=== PATIENT | male | born 1975 | race Caucasian/White ===

== ENCOUNTER 2020-08-23 22:28 | Emergency (ER) | payer BC ==
[2020-08-23] MEDS ORDERED: TORAdol 30 mg Injection IV ONE (23:07)
[2020-08-23] MEDS ORDERED: TORAdol 30 mg Injection ONE (23:08)
--- NOTE | 2020-08-23 23:14 | ERPHSYRPT ---
- History of Present Illness Historian: patient Patient Subjective Stated Complaint: pt states he has pain in his lt side that started after dinner tonight. pain is in lt lower back and wraps around to lt pelvic area Triage Nursing Assessment: pt alert and oriented, answers questions approp. pt ambulatory with slow stooped gait noted. respirations nonlabored with lungs cta. abd soft with bowel sounds x4. Physician History: 44 yo wm w LLQ/L flank pain x 4 hours. Pain 8/10, sharp, and nothing makes better or worse. He denies fever/dysuria/hematuria/N/V/D/melena/hemat ochezia/chest pain. Pt has had simialr pain in the past on the R side which was undiagnosed. Timing/Duration: other (4hrs) Quality: sharpness Abdominal Pain Onset Location: LLQ, flank Pain Radiation: no radiation Severity of Pain-Max: severe Severity of Pain-Current: severe Modifying Factors: Improves With: nothing Associated Symptoms: back, No chest pain, No diaphoresis, No diarrhea, No fever/chills, No fatigue, No headache, No heartburn, No loss of appetite, No nausea, No neck pain, No rash, No shortness of breath, No syncope, No testicular pain, No vomiting, No weakness Previous symptoms: same symptoms as today Allergies/Adverse Reactions: No Known Drug Allergies Allergy (Verified 08/23/20 22:44) Home Medications: No Reportable Medications [No Reported Medications] 08/23/20 [History] Hx Tetanus, Diphtheria Vaccination/Date Given: No Hx Influenza Vaccination/Date Given: No Hx Pneumococcal Vaccination/Date Given: No Immunizations Up to Date: No Travel Risk - International Travel Have you traveled outside of the country in past 3 weeks: No - Coronavirus Screening Are you exhibiting any of the following symptoms?: No Close contact with a COVID-19 positive Pt in past 14-21 Days: No - Vaccine Status Have you recieved a Covid-19 vaccination: No - Review of Systems Constitutional: No Symptoms Eyes: No Symptoms Ears, Nose, & Throat: No Symptoms Respiratory: No Symptoms Cardiac: No Symptoms Abdominal/Gastrointestinal: No Symptoms, Abdominal Pain Genitourinary Symptoms: No Symptoms, Flank Pain Musculoskeletal: No Symptoms Skin: No Symptoms Neurological: No Symptoms Psychological: No Symptoms Endocrine: No Symptoms Hematologic/Lymphatic: No Symptoms Immunological/Allergic: No Symptoms - Past Medical History Pertinent Past Medical History: No - Past Surgical History Past Surgical History: Yes Musculoskeletal: Orthopedic Surgery Other Surgical History: hardware in leg, pelvis, and shoulder - Social History Smoking Status: Current every day smoker How long have you smoked: 20+yrs Exposure to second hand smoke: No Drug Use: none Patient Lives Alone: No Significant Family History: no pertinent family hx - Nursing Vital Signs Nursing Vital Signs: Initial Vital Signs Respiratory Rate 18 08/23/20 22:35 Pain Scale Pain Intensity 3 - Physical Exam General Appearance: no apparent distress Eye Exam: PERRL/EOMI, eyes nml inspection Ears, Nose, Throat Exam: normal ENT inspection, TMs normal, pharynx normal, moist mucous membranes Neck Exam: normal inspection, non-tender, supple, No full range of motion, No meningismus, No mass, No Brudzinski, No Kernig's Respiratory Exam: normal breath sounds, lungs clear, airway intact, No chest tenderness, No respiratory distress Cardiovascular Exam: regular rate/rhythm, normal heart sounds, normal peripheral pulses, No murmur Gastrointestinal/Abdomen Exam: soft, normal bowel sounds, tenderness (Mild LLQ/L flank pain ttp wo guarding/rebound) Back Exam: CVA tenderness (Mild L) Extremity Exam: normal inspection, normal range of motion, pelvis stable Neurologic Exam: alert, oriented x 3, cooperative, 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, normal mood/affect, nml cerebellar function, nml station & gait, sensation nml, No motor deficits, No sensory deficit Skin Exam: normal color, warm, dry Lymphatic Exam: adenopathy - Course Nursing assessment & vital signs reviewed: Yes EKG Interpreted by Me: RATE (NSR/R67/Normal QT-QTc/Flat T-waves/No acute ST changes) - CT Exams Abdomen/Pelvis CT Interpretation: Tele-radiologist Report (Nothing acute) Ordered Tests: Active Orders 24 hr Category Date Time Status EKG-ER Only STAT Care 08/24/20 01:13 Completed ABDOMEN AND PELVIS W/0 CONTRAS [CT] Stat Exams 08/24/20 00:37 Taken AMYLASE Stat Lab 08/24/20 00:30 Completed CBC W DIFF Stat Lab 08/24/20 00:30 Completed CMP Stat Lab 08/24/20 00:30 Completed LIPASE Stat Lab 08/24/20 00:30 Completed TROPONIN Q3H Lab 08/24/20 00:15 Completed UA W/RFX UR CULTURE Stat Lab 08/23/20 23:06 Completed Medication Summary Discontinued Medications Generic Name Dose Route Start Last Admin Trade Name [place] PRN Reason Stop Dose Admin Fentanyl Citrate 100 mcg 08/24/20 00:04 08/24/20 00:09 Sublimaze 100 Mcg/2 Ml IV 08/24/20 00:05 100 mcg STAT ONE Administration Fentanyl Citrate Confirm 08/24/20 00:06 Sublimaze 100 Mcg/2 Ml Administered 08/24/20 00:07 Dose 100 mcg .ROUTE .STK-MED ONE Hydromorphone HCl 1 mg 08/24/20 01:38 08/24/20 01:40 Hydromorphone 1 Mg/Ml Injection IV 08/24/20 01:39 1 mg STAT ONE Administration Hydromorphone HCl Confirm 08/24/20 01:38 Hydromorphone 1 Mg/Ml Injection Administered 08/24/20 01:39 Dose 1 mg .ROUTE .STK-MED ONE Ketorolac Tromethamine 30 mg 08/23/20 23:07 08/23/20 23:09 Toradol 30 Mg Injection IV 08/23/20 23:08 30 mg STAT ONE Administration Ketorolac Tromethamine Confirm 08/23/20 23:08 Toradol 30 Mg Injection Administered 08/23/20 23:09 Dose 30 mg .ROUTE .STK-MED ONE Ondansetron HCl 4 mg 08/24/20 00:05 08/24/20 00:09 Zofran 4 Mg/2 Ml Vial IV 08/24/20 00:06 4 mg STAT ONE Administration Ondansetron HCl Confirm 08/24/20 00:06 Zofran 4 Mg/2 Ml Vial Administered 08/24/20 00:07 Dose 4 mg .ROUTE .STK-MED ONE Lab/Rad Data: Laboratory Result Diagrams 08/24/20 00:30 08/24/20 00:30 Laboratory Results 08/24/20 08/24/20 08/24/20 Range/Units 00:30 00:30 00:15 WBC 7.4 (4.0-10.5) K/mm3 RBC 5.15 (4.1-5.6) M/mm3 Hgb 15.5 (12.5-18.0) gm/dl Hct 47.2 (42-50) % MCV 91.7 (78-100) fl MCH 30.1 (26-32) pg MCHC 32.8 (32-36) g/dl RDW 13.4 (11.5-14.0) % Plt Count 291 (150-450) K/mm3 MPV 9.6 (7.5-11.0) fl Gran % 47.1 (36.0-66.0) % Eos # (Auto) 0.26 (0-0.5) Absolute Lymphs (auto) 2.55 (1.0-4.6) Absolute Monos (auto) 1.10 (0.0-1.3) Lymphocytes % 34.3 (24.0-44.0) % Monocytes % 14.8 H (0.0-12.0) % Eosinophils % 3.5 (0.00-5.0) % Basophils % 0.3 (0.0-0.4) % Absolute Granulocytes 3.51 (1.4-6.9) Basophils # 0.02 (0-0.4) Sodium 139 (137-145) mmol/L Potassium 4.2 (3.5-5.1) mmol/L Chloride 105 (98-107) mmol/L Carbon Dioxide 27 (22-30) mmol/L Anion Gap 10.7 (5-15) MEQ/L BUN 16 (9-20) mg/dL Creatinine 1.08 (0.66-1.25) mg/dL Estimated GFR > 60.0 ML/MIN Glucose 94 (74-106) mg/dL Calcium 9.3 (8.4-10.2) mg/dL Total Bilirubin 0.30 (0.2-1.3) mg/dL AST 25 (17-59) U/L ALT 27 (0-50) U/L Alkaline Phosphatase 62 (38-126) U/L Troponin I < 0.012 (0.000-0.034) ng/mL Serum Total Protein 6.8 (6.3-8.2) g/dL Albumin 3.8 (3.5-5.0) g/dL Amylase 71 (30-110) U/L Lipase 195 (23-300) U/L Urine Color (YELLOW) Urine Appearance (CLEAR) Urine pH (5-6) Ur Specific [place] (1.005-1.025) Urine Protein (Negative) Urine Ketones (NEGATIVE) Urine Blood (0-5) James/ul Urine Nitrite (NEGATIVE) Urine Bilirubin (NEGATIVE) Urine Urobilinogen (0-1) mg/dL Ur Leukocyte Esterase (NEGATIVE) Urine WBC (Auto) (0-5) /HPF Urine RBC (Auto) (0-2) /HPF U Epithel Cells (Auto) (FEW) /HPF Urine Bacteria (Auto) (NEGATIVE) /HPF Amorphous Crystals (NEGATIVE) /HPF Urine Culture Reflexed (NO) Urine Glucose (NEGATIVE) mg/dL 08/23/20 Range/Units 23:06 WBC (4.0-10.5) K/mm3 RBC (4.1-5.6) M/mm3 Hgb (12.5-18.0) gm/dl Hct (42-50) % MCV (78-100) fl MCH (26-32) pg MCHC (32-36) g/dl RDW (11.5-14.0) % Plt Count (150-450) K/mm3 MPV (7.5-11.0) fl Gran % (36.0-66.0) % Eos # (Auto) (0-0.5) Absolute Lymphs (auto) (1.0-4.6) Absolute Monos (auto) (0.0-1.3) Lymphocytes % (24.0-44.0) % Monocytes % (0.0-12.0) % Eosinophils % (0.00-5.0) % Basophils % (0.0-0.4) % Absolute Granulocytes (1.4-6.9) Basophils # (0-0.4) Sodium (137-145) mmol/L Potassium (3.5-5.1) mmol/L Chloride (98-107) mmol/L Carbon Dioxide (22-30) mmol/L Anion Gap (5-15) MEQ/L BUN (9-20) mg/dL Creatinine (0.66-1.25) mg/dL Estimated GFR ML/MIN Glucose (74-106) mg/dL Calcium (8.4-10.2) mg/dL Total Bilirubin (0.2-1.3) mg/dL AST (17-59) U/L ALT (0-50) U/L Alkaline Phosphatase (38-126) U/L Troponin I (0.000-0.034) ng/mL Serum Total Protein (6.3-8.2) g/dL Albumin (3.5-5.0) g/dL Amylase (30-110) U/L Lipase (23-300) U/L Urine Color YELLOW (YELLOW) Urine Appearance SLIGHTLY CLOUDY (CLEAR) Urine pH 7.0 (5-6) Ur Specific [place] 1.021 (1.005-1.025) Urine Protein NEGATIVE (Negative) Urine Ketones NEGATIVE (NEGATIVE) Urine Blood SMALL (0-5) James/ul Urine Nitrite NEGATIVE (NEGATIVE) Urine Bilirubin NEGATIVE (NEGATIVE) Urine Urobilinogen 2 (0-1) mg/dL Ur Leukocyte Esterase NEGATIVE (NEGATIVE) Urine WBC (Auto) 3-5 (0-5) /HPF Urine RBC (Auto) NONE (0-2) /HPF U Epithel Cells (Auto) NONE (FEW) /HPF Urine Bacteria (Auto) NONE SEEN (NEGATIVE) /HPF Amorphous Crystals FEW (NEGATIVE) /HPF Urine Culture Reflexed NO (NO) Urine Glucose NEGATIVE (NEGATIVE) mg/dL - Progress Progress: improved Progress Note: 08/24/20 01:44 30mg IV Toradol w mild relief 100umg IV Fentany/4mg IV 08/24/20 01:48 1mg IV Dilaudid before DC Counseled pt/family regarding: lab results, diagnosis, need for follow-up, rad results - Departure Departure Disposition: Home Clinical Impression: Abdominal pain Condition: Stable Critical Care Time: No Referrals: DOCTOR,NO FAMILY [Primary Care Provider] - Instructions: Acute Abdomen (Belly Pain), Adult (DC) Additional Instructions: Return to ER for increasing pain or temperature greater than 100.5 Follow up with your family MD in 1-2 days
[2020-08-24] MEDS ORDERED: SUBLIMAZE 100 MCG/2 ML IV ONE (00:04)
[2020-08-24] MEDS ORDERED: Zofran 4 MG/2 ML VIAL IV ONE (00:05)
[2020-08-24] MEDS ORDERED: Zofran 4 MG/2 ML VIAL ONE (00:06)
[2020-08-24] MEDS ORDERED: SUBLIMAZE 100 MCG/2 ML ONE (00:06)
[2020-08-24 00:21] LABS: Amourphous Crystal FEW /HPF (NEGATIVE); Appearance SLIGHTLY CLOUDY (CLEAR); Bacteria NONE SEEN /HPF (NEGATIVE); Bilirubin NEGATIVE (NEGATIVE); Blood SMALL Ery/ul (0-5); Glucose NEGATIVE (NEGATIVE); Ketones NEGATIVE (NEGATIVE); Leukocyte Esterase NEGATIVE (NEGATIVE); Nitrite NEGATIVE (NEGATIVE); Protein,Urine Dip NEGATIVE (Negative); Specific Gravity 1.021 (1.005-1.025); Urobilinogen 2 mg/dL (0-1)
[2020-08-24 00:39] LABS: Absolute Neutrophil Ct (ANC) 3.51 (1.4-6.9); BASOPHIL % 0.3 % (0.0-0.4); Basophil (Absolute #) 0.02 (0-0.4); Eosinophil % 3.5 % (0.00-5.0); Eosinophil (Absolute #) 0.26 (0-0.5); Hematocrit 47.2 % (42-50); Hemoglobin 15.5 gm/dl (12.5-18.0); Lymphocyte (Absolute #) 2.55 (1.0-4.6); Lymphocytes % 34.3 % (24.0-44.0); Mean Cell Volume 91.7 fl (78-100); Mean Corpuscular Hemoglobin 30.1 pg (26-32); Mean Corpuscular Hgb Concent. 32.8 g/dl (32-36); Mean Platelet Volume 9.6 fl (7.5-11.0); Monocytes % 14.8 % (0.0-12.0); Neutrophil % 47.1 % (36.0-66.0); Platelet Count 291 K/mm3 (150-450); Red Blood Count 5.15 M/mm3 (4.1-5.6); Red Cell Distribution Width 13.4 % (11.5-14.0); White Blood Count 7.4 K/mm3 (4.0-10.5)
[2020-08-24 01:01] LABS: ALBUMIN 3.8 g/dL (3.5-5.0); ALKALINE PHOSPHATASE 62 U/L (38-126); AMYLASE 71 U/L (30-110); ANION GAP 10.7 MEQ/L (5-15); BLOOD UREA NITROGEN 16 mg/dL (9-20); CHLORIDE 105 mmol/L (98-107); Calcium 9.3 mg/dL (8.4-10.2); Carbon Dioxide 27 mmol/L (22-30); Creatinine 1 1.08 mg/dL (0.66-1.25); EST GLOMERULAR FILTRATION RATE > 60.0 ML/MIN; Glucose 94 mg/dL (74-106); LIPASE 195 U/L (23-300); Potassium 4.2 mmol/L (3.5-5.1); SGOT/AST 25 U/L (17-59); SGPT/ALT 27 U/L (0-50); SODIUM 139 mmol/L (137-145); Total Protein 6.8 g/dL (6.3-8.2)
[2020-08-24] MEDS ORDERED: Hydromorphone 1 mg/ml Injection ONE (01:38)
[2020-08-24] MEDS ORDERED: Hydromorphone 1 mg/ml Injection IV ONE (01:38)
[2020-08-24 01:58] VITALS: BP 100/68; PULSE 70; O2SAT 96
--- NOTE | 2020-08-24 09:47 | XRAY ---
Indication: Left flank pain. Multiple contiguous axial images obtained through the abdomen and pelvis without contrast using renal stone protocol. Comparison: None Lung bases demonstrates bilateral dependent atelectasis and small right costophrenic angle calcified granuloma. No infiltrate or effusion. Heart is not enlarged. No renal calculus or evidence for obstructive uropathy in either system. Stomach is distended with food/fluid. Noncontrasted stomach and bowel loops appear nonobstructed with normal appendix. Minimal sigmoid diverticulosis. Gallbladder contracted without gallstones. No free fluid/air. Remaining liver, pancreas, spleen, adrenal glands, kidneys, ureters, bladder, and aorta appear unremarkable for noncontrast exam. Osseous structures intact with incidental old left acetabulum fracture and intact fixation plate/screws. Impression: 1. Negative renal calculus or evidence for obstructive uropathy. 2. Incidental sigmoid diverticulosis and chronic bony findings. Comment: Preliminary interpretation was made by [facility]. No critical discrepancy.
== END 2020-08-24 02:05 | disposition home or self-care (01) ==
LOC: ED 22:28
DX: R10.9 Unspecified abdominal pain (principal)
CPT/HCPCS: 36000; 36415; 74176; 80053; 81001; 82150; 83690; 84484; 85025; 93005; 96374; 99284; J1170; J1885; J2405; J3010

== ENCOUNTER 2024-01-01 18:07 | Emergency (ER) | payer BC ==
--- NOTE | 2024-01-01 18:37 | ERPHSYRPT ---
- History of Present Illness Time Seen by Provider: 01/01/24 18:37 Historian: patient, family Exam Limitations: no limitations Physician History: This is an overweight 48-year-old white male patient of Dr. Mckeon presents with epigastric abdominal pain with radiates to his back. Is been present intermittently for 3 days. He has felt bloated belching gassy. This morning, he had an egg and platt sandwich. Patient did take some Pepto-Bismol which did not help much but his bowel movement after Pepto-Bismol was black. He has not had any vomiting symptoms. He denies chest pain and he denies shortness of breath. He has never had any abdominal surgeries in the past. Timing/Duration: day(s) (3), intermittent Quality: aching, pressure, sharpness Abdominal Pain Onset Location: epigastric Pain Radiation: back Severity of Pain-Max: moderate Severity of Pain-Current: moderate Modifying Factors: Improves With: eating (Patient specifically stated that eating makes it worse) Associated Symptoms: denies symptoms Previous symptoms: no prior history, no recent treatment Allergies/Adverse Reactions: No Known Drug Allergies Allergy (Verified 01/01/24 18:26) Home Medications: No Reportable Medications [No Reported Medications] 08/23/20 [History] Hx Tetanus, Diphtheria Vaccination/Date Given: No Hx Influenza Vaccination/Date Given: No Hx Pneumococcal Vaccination/Date Given: No Travel Risk - International Travel Have you traveled outside of the country in past 3 weeks: No - Emerging Infectious Disease Are you exhibiting symptoms associated with any current EIDs: No - Vaccine Status Hx Covid Vaccintation/Booster/Date Given: No - Review of Systems Constitutional: No Symptoms Eyes: No Symptoms Ears, Nose, & Throat: No Symptoms Respiratory: No Symptoms Cardiac: No Symptoms Abdominal/Gastrointestinal: Abdominal Pain (Gastric), Appetite Changes Genitourinary Symptoms: No Symptoms Musculoskeletal: No Symptoms Skin: No Symptoms Neurological: No Symptoms Psychological: No Symptoms Endocrine: No Symptoms Hematologic/Lymphatic: No Symptoms Immunological/Allergic: No Symptoms All Other Systems: Reviewed and Negative - Past Medical History Pertinent Past Medical History: No - Past Surgical History Past Surgical History: Yes Musculoskeletal: Orthopedic Surgery Other Surgical History: hardware in leg, pelvis, and shoulder Significant Family History: no pertinent family hx - Social History Smoking Status: Current every day smoker How long have you smoked: 20+yrs Exposure to second hand smoke: No Drug Use: none Patient Lives Alone: No - Nursing Vital Signs Nursing Vital Signs: Initial Vital Signs Temperature 99 F 01/01/24 18:25 Pulse Rate 97 H 01/01/24 18:25 Respiratory Rate 17 01/01/24 18:25 Blood Pressure 127/85 01/01/24 18:25 O2 Sat by Pulse Oximetry 97 01/01/24 18:25 Pain Scale Pain Intensity 3 - Physical Exam General Appearance: no apparent distress, alert, anxiety Eye Exam: PERRL/EOMI, eyes nml inspection Ears, Nose, Throat Exam: normal ENT inspection, moist mucous membranes Neck Exam: normal inspection, non-tender, supple, full range of motion Respiratory Exam: normal breath sounds, lungs clear, airway intact, No chest tenderness, No respiratory distress Cardiovascular Exam: regular rate/rhythm, normal heart sounds, normal peripheral pulses Gastrointestinal/Abdomen Exam: soft, normal bowel sounds, tenderness (Epigastrium), guarding (Gastrium), No rebound Rectal Exam: not done Back Exam: normal inspection, normal range of motion, No CVA tenderness, No vertebral tenderness Extremity Exam: normal inspection, normal range of motion, pelvis stable Neurologic Exam: alert, oriented x 3, cooperative, 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, nml cerebellar function, nml station & gait, sensation nml Skin Exam: normal color, warm, dry Lymphatic Exam: No adenopathy SpO2 Interpretation: normal O2 Delivery: Room Air - Course Nursing assessment & vital signs reviewed: Yes Ordered Tests: Active Orders 24 hr Category Date Time Status IV Insertion STAT Care 01/01/24 19:10 Active ABDOMEN AND PELVIS W/0 CONTRAS [CT] Stat Exams 01/01/24 19:11 Taken AMYLASE Stat Lab 01/01/24 19:00 Completed CBC W DIFF Stat Lab 01/01/24 19:00 Completed CMP Stat Lab 01/01/24 19:00 Completed LIPASE Stat Lab 01/01/24 19:00 Completed UA W/RFX UR CULTURE Stat Lab 01/01/24 20:32 Received Medication Summary Discontinued Medications Generic Name Dose Route Start Last Admin Trade Name Freq PRN Reason Stop Dose Admin Hydromorphone HCl 1 mg 01/01/24 19:10 01/01/24 19:31 Hydromorphone 1 Mg/1ml Inj IV 01/01/24 19:11 1 mg STAT ONE Administration Hydromorphone HCl Confirm 01/01/24 19:25 Hydromorphone 1 Mg/1ml Inj Administered 01/01/24 19:26 Dose 1 mg .ROUTE .STK-MED ONE Sodium Chloride 1,000 mls @ 999 mls/hr 01/01/24 19:10 01/01/24 19:31 Sodium Chloride 0.9% 1000 Ml IV 01/01/24 20:10 999 mls/hr .Q1H1M STA Administration Sodium Chloride Confirm 01/01/24 19:25 Sodium Chloride 0.9% 1000 Ml Administered 01/01/24 19:26 Dose 1,000 mls @ ud .ROUTE .STK-MED ONE Ondansetron HCl 4 mg 01/01/24 19:10 01/01/24 19:31 Ondansetron Hcl 4 Mg/2 Ml Vial IV 01/01/24 19:11 4 mg STAT ONE Administration Ondansetron HCl Confirm 01/01/24 19:25 Ondansetron Hcl 4 Mg/2 Ml Vial Administered 01/01/24 19:26 Dose 4 mg .ROUTE .STK-MED ONE Lab/Rad Data: Laboratory Result Diagrams 01/01/24 19:00 01/01/24 19:00 Laboratory Results 01/01/24 01/01/24 Range/Units 19:00 19:00 WBC 11.7 H (4.23-9.07) x10^3/uL RBC 5.30 (4.63-6.08) x10^6/uL Hgb 15.7 (13.7-17.5) g/dL Hct 46.7 (40.1-51.0) % MCV 88.1 (79.0-92.2) fL MCH 29.6 (25.7-32.2) pg MCHC 33.6 (32.3-36.5) g/dL RDW 12.7 (11.6-14.4) % Plt Count 285 (163-337) x10^3/uL MPV 9.2 L (9.4-12.4) fL Gran % 65.3 (34.0-67.9) % Immature Gran % (Auto) 0.3 (0.001-0.429) % Nucleat RBC Rel Count 0.0 (0.00-0.2) % Eos # (Auto) 0.27 (0.04-0.54) x10^3/uL Immature Gran # (Auto) 0.04 H (0.001-0.031) x10^3u/L Absolute Lymphs (auto) 2.23 (1.32-3.57) x10^3/uL Absolute Monos (auto) 1.48 H (0.30-0.82) x10^3/uL Absolute Nucleated RBC 0.00 (0.00-0.012) x10^3u/L Lymphocytes % 19.1 L (21.8-53.1) % Monocytes % 12.7 H (5.3-12.2) % Eosinophils % 2.3 (0.8-7.0) % Basophils % 0.3 (0.2-1.2) % Absolute Granulocytes 7.61 H (1.78-5.38) x10^3/uL Basophils # 0.04 (0.01-0.08) x10^3/uL Sodium 137 (135-145) mmol/L Potassium 4.3 (3.5-5.1) mmol/L Chloride 104 (98-107) mmol/L Carbon Dioxide 26 (22-30) mmol/L Anion Gap 11.7 (5-15) MEQ/L BUN 15 (9-20) mg/dL Creatinine 1.14 (0.66-1.25) mg/dL Estimated GFR 79.8 ML/MIN Glucose 109 H (74-106) mg/dL Calcium 9.3 (8.4-10.2) mg/dL Total Bilirubin 1.00 (0.2-1.3) mg/dL AST 37 (17-59) U/L ALT 49 (0-50) U/L Alkaline Phosphatase 72 (38-126) U/L Serum Total Protein 7.7 (6.3-8.2) g/dL Albumin 4.0 (3.5-5.0) g/dL Amylase 73 (30-110) U/L Lipase 73 (23-300) U/L - Progress Progress: improved, pain not gone completely Progress Note: 01/01/24 19:25 Medical decision making and the assignment of moderate complexity to this patient's medical issue today is based on review of the patient's past medical history, review of the patient's medication list, reviewed patient drug allergy list, history present illness and physical findings on examination. The workup in this patient includes placement of intravenous line, infusion of Dilaudid, infusion of Zofran, CBC, CMP, amylase, lipase, CT scan of the abdomen pelvis without contrast and urinalysis. Differential diagnosis includes but is not limited to cholecystitis, cholelithiasis, colitis, bowel obstruction, acute appendicitis, pancreatitis 01/01/24 20:39 I interpreted the patient's laboratory data results. The patient has a mildly elevated white blood cell count. No other significant findings on his laboratory data results to suggest an acute, emergent medical issue. CT scan of the abdomen pelvis without contrast shows new, mild mid abdomen mesenteric adenitis Counseled pt/family regarding: lab results, diagnosis, need for follow-up, rad results Medical Desision Making - Independent Historian Additional History obtained from: Spouse - Diagnostic Testing Diagnostic test were ordered, analyzed, and reviewed by me: Yes Radiological Interpretation: Reviewed by me, Teleradiologist Report - Risk of complications Low Risk: Low risk of morbidity from additional dx testing or treatment - Departure Departure Disposition: Home Clinical Impression: Mesenteric adenitis Condition: Stable Critical Care Time: No Referrals: ZENA MCKEON MD [Primary Care Provider] - Follow up/PCP as directed Additional Instructions: Drink plenty of clear liquids before advancing your diet. Avoid fatty greasy spicy foods. Call your primary care provider tomorrow, 01/02/2024 to make arrangements for follow-up appointment for further evaluation and management. Use Tylenol and ibuprofen for pain control. Also discussed the possibility of gallbladder ultrasound if indicated
[2024-01-01 18:42] VITALS: TEMP 99
[2024-01-01 19:19] LABS: Absolute Neutrophil Ct (ANC) 7.61 x10^3/uL (1.78-5.38); BASOPHIL % 0.3 % (0.2-1.2); Basophil (Absolute #) 0.04 x10^3/uL (0.01-0.08); Eosinophil % 2.3 % (0.8-7.0); Eosinophil (Absolute #) 0.27 x10^3/uL (0.04-0.54); Hematocrit 46.7 % (40.1-51.0); Hemoglobin 15.7 g/dL (13.7-17.5); IMMATURE GRAN # 0.04 x10^3u/L (0.001-0.031); IMMATURE GRAN % 0.3 % (0.001-0.429); Lymphocyte (Absolute #) 2.23 x10^3/uL (1.32-3.57); Lymphocytes % 19.1 % (21.8-53.1); Mean Cell Volume 88.1 fL (79.0-92.2); Mean Corpuscular Hemoglobin 29.6 pg (25.7-32.2); Mean Corpuscular Hgb Concent. 33.6 g/dL (32.3-36.5); Mean Platelet Volume 9.2 fL (9.4-12.4); Monocyte (Absolute #) 1.48 x10^3/uL (0.30-0.82); Monocytes % 12.7 % (5.3-12.2); Neutrophil % 65.3 % (34.0-67.9); Platelet Count 285 x10^3/uL (163-337); Red Cell Distribution Width 12.7 % (11.6-14.4); White Blood Count 11.7 x10^3/uL (4.23-9.07)
[2024-01-01] MEDS ORDERED: Hydromorphone 1 mg/ml Injection ONE (19:25)
[2024-01-01] MEDS ORDERED: Zofran 4 MG/2 ML VIAL ONE (19:25)
[2024-01-01] MEDS ORDERED: Sodium Chloride 0.9% 1000 ML 1,000 ML ONE (19:25)
[2024-01-01] MEDS: Hydromorphone 1 mg/ml Injection IV ONE (19:31)
[2024-01-01] MEDS: Zofran 4 MG/2 ML VIAL IV ONE (19:31)
[2024-01-01] MEDS: Sodium Chloride 0.9% 1000 ML 1,000 ML IV STA (19:31)
[2024-01-01 19:35] LABS: ANION GAP 11.7 MEQ/L (5-15); Calcium 9.3 mg/dL (8.4-10.2); Creatinine 1 1.14 mg/dL (0.66-1.25); EST GLOMERULAR FILTRATION RATE 79.8 ML/MIN; Potassium 4.3 mmol/L (3.5-5.1); Total Protein 7.7 g/dL (6.3-8.2)
[2024-01-01 20:44] LABS: Appearance Clear (Clear); Bacteria None Seen /HPF (None Seen); Bilirubin Negative (Negative); Blood Negative (Negative); Epithelial Cells None Seen /HPF (None Seen); Glucose, Urine Negative (Negative); Hyaline Casts NONE SEEN /LPF (0-2); Ketones Negative (Negative); Leukocyte Esterase Trace (Negative); Nitrite Negative (Negative); Protein,Urine Dip Trace (Negative); RBC 0-2 /HPF (0-5); Specific Gravity 1.025 (1.005-1.030); WBC 0-2 /HPF (0-5)
[2024-01-01 21:18] VITALS: BP 103/66; PULSE 91; RESP 24; O2SAT 97
--- NOTE | 2024-01-02 09:00 | XRAY ---
Indication: Epigastric abdominal pain 3 days. Multiple contiguous axial images obtained through the abdomen and pelvis without contrast. Comparison: August 24, 2020 Lung bases again demonstrates minimal dependent atelectasis and right costophrenic angle calcified granuloma. No infiltrate or effusion. Heart not enlarged. Noncontrasted stomach and bowel loops appear nonobstructed again with normal appendix. There are now small centimeter and subcentimeter mid abdomen mesenteric nodes with stranding favoring adenitis. Mild diffuse fatty liver. No free fluid/air. Remaining liver, gallbladder, pancreas, spleen, adrenal glands, kidneys, ureters, and bladder are unremarkable for noncontrast exam. Minimal scattered aortoiliac calcifications without AAA. Osseous structures intact with minimal degenerative changes throughout spine and again old left acetabular fracture with intact hardware. No ventral or inguinal hernias. Again incidental bilateral vasectomy clips. Impression: 1. New CT findings favoring mesenteric adenitis. 2. Chronic findings including fatty liver, arteriosclerotic disease, chronic bony findings, and old granulomatous disease.
== END 2024-01-01 21:31 | disposition home or self-care (01) ==
LOC: ED 18:07
DX: I88.0 Nonspecific mesenteric lymphadenitis (principal); R10.13 Epigastric pain; Z72.0 Tobacco use
CPT/HCPCS: 36000; 36415; 74176; 80053; 81001; 82150; 83690; 85025; 87086; 96360; 96374; 99284; J1170; J2405